=== PATIENT | female | born 1995 | race Two or more races ===

== ENCOUNTER 2025-01-20 03:19 | Emergency (ER) | payer SELFPAY ==
[2025-01-20 03:19] VITALS: BMI 40.6
[2025-01-20 03:27] VITALS: BP 129/90; PULSE 128; RESP 19; TEMP 37.1; O2SAT 96
--- NOTE | 2025-01-20 03:28 | PD.EDABDPN ---
ED Abdominal Pain RME/HPI General Chief Complaint: Abdominal Pain Stated complaint: ABD PAIN X5DAYS Time seen by provider: 01/20/25 03:32 Arrival date/time: 01/20/25 03:19 RME / HPI RME / HPI narrative: See MDM for Dr. Hernández's HPI documentation. Related Data Previous Rx's ?Medication ?Instructions ?Recorded hydrocodone 5 mg-acetaminophen 325 1 tab PO TID #10 tabs /30/22 mg tablet Allergies Allergy/AdvReac Type Severity Reaction Status Date / Time diphenhydramine Allergy Unknown Verified 01/20/25 03:46 Review of Systems Review of Systems Systems Reviewed: All systems reviewed, normal except as documented Past Medical History Social History SMOKING STATUS: Never smoker ED Exam Narrative Physical exam: See MDM for Dr. Hernández's physical exam documentation. Course Course Course Narrative: 0422: Sepsis alert initiated. Orders made at this time are congruent with ED Adult Sepsis Order List. Re-evaluation is to be completed. NS IVF was started at 0403. Quality Measures none Orders Category Date Time Status CT Screening NOW Care 01/20/25 03:34 Active Saline [Insert IV] NOW Care 01/20/25 03:[address] abdomen pelvis w con Stat Exams 01/20/25 03:34 Ordered US gall bladder Stat Exams 01/20/25 03:34 Taken US pelvic complete Stat Exams 01/20/25 03:34 Taken Amylase Stat Lab 01/20/25 04:00 Completed Bilirubin,Direct Stat Lab 01/20/25 04:00 Completed Blood Culture (Lab) Stat Lab 01/20/25 04:25 Received CBC Stat Lab 01/20/25 04:00 Completed CMP [Comprehensive Metabolic Panel] Stat Lab 01/20/25 04:00 Completed CRP [C-Reactive Protein] Stat Lab 01/20/25 04:21 Completed ESR [Sed Rate (ESR)] Stat Lab 01/20/25 04:21 Completed HCG,Qualitative Serum Stat Lab 01/20/25 04:00 Completed Lactate (Lactic Acid) Stat Lab 01/20/25 04:21 Completed Lipase Stat Lab 01/20/25 04:00 Completed Magnesium Stat Lab 01/20/25 04:00 Completed Procalcitonin Stat Lab 01/20/25 04:21 Completed UA, C/S IF [Urinalysis, C/S if Indicated] Stat Lab 01/20/25 03:35 Ordered Famotidine Inj [Pepcid Inj] Med 01/20/25 03:34 Discontinued 20 mg IVP X1 ONE Ketorolac Inj [Toradol Inj] Med 01/20/25 03:33 Discontinued 30 mg IVP X1 ONE Morphine* Inj Med 01/20/25 03:33 Discontinued 4 mg IV X1 ONE Ondansetron Inj [Zofran Inj] Med 01/20/25 03:33 Discontinued 4 mg IVP X1 ONE Pantoprazole Inj [Protonix Inj] Med 01/20/25 03:34 Discontinued 40 mg IVP X1 ONE Ringers Lactated 1000 ml [Lactated Ringers] 1,000 ml Med 01/20/25 05:06 Active IV 1,000 mls/hr Sodium Chloride 0.9% 1000 ml [Ns] 1,000 ml Med 01/20/25 03:33 Discontinued IV 999 mls/hr cefTRIAXone/D5w 1gm IV premix [Rocephin/D5w 1gm IV Med 01/20/25 04:23 Discontinued premix] 1 gm in 50 ml IV X1 Vital Signs Vital signs: Vital Signs Temperature 98.8 F 01/20/25 03:27 Pulse Rate 128 H 01/20/25 03:27 Respiratory Rate 19 01/20/25 03:27 Blood Pressure 129/90 H 01/20/25 03:27 Pulse Oximetry (%) 96 01/20/25 03:27 Oxygen Delivery Method Room Air 01/20/25 03:27 Abdominal Pain MDM MDM Narrative MDM Narrative:: This section includes all my notes and documentations, including HPI, PE, and ED course. Ronaldo Hernández MD HPI: 29yo female here with abdominal pain, nausea, and vomiting for the last several days. Worsening over the last 24 hours. No fever or chills. No history of abdominal surgery. No urinary symptoms. No other complaints reported. ROS: All negative except as documented in HPI. Physical Exam: General: Alert and oriented. In severe pain. Eyes: Conjunctivae and lids clear. ENT: No nasal congestion. Neck: Supple. Heart: RRR. Lungs: No respiratory distress. Good air movement. No rhonchi, wheezing, rales. Abdomen: Soft with diffuse tenderness. Normal bowel sounds. No distension. No rebound or guarding. Back: No CVA tenderness. Skin: Warm and dry. Neuro: Alert and oriented X 3. I ordered the IV fluid, medications, and diagnostic tests. At 6 AM on 01/20/2025, the care of the patient was transferred to Dr. Ramey. Ronaldo Hernández MD Patient data External records reviewed:: [facility] previous records (Per chart review, patient has no relevant previous ED visits.) Clinical information provided by:: patient Social determinants that could affect healthcare access:: none Patient has the following chronic illnesses:: none How is presenting disease/condition affected by chronic disease/condition?: no chronic disease Evaluation data The following diagnostics were reviewed and interpreted by me:: lab results and radiology exam(s) Lab and/or radiology exams considered but not ordered:: none Interpretation Summary: Complete diagnostic tests are pending. Medications / Prescriptions Medications or Prescriptions considered but not ordered:: none Medication administrations:: Medication Administration History Lactated Ringer's (Lactated Ringers) 1,000 mls @ 1,000 mls/hr IV .Q1H ONE Stop: 01/20/25 06:05 Discontinued Medications Famotidine (Famotidine Inj 10 Mg/Ml Vial 2 Ml) 20 mg IVP X1 ONE Stop: 01/20/25 03:35 Last Admin: 01/20/25 04:04 Dose: 20 mg Documented By: BRIAN Sodium Chloride (Ns) 1,000 mls @ 999 mls/hr IV .Q1H1M ONE Stop: 01/20/25 04:33 Last Admin: 01/20/25 04:03 Dose: 999 mls/hr Documented By: BRIAN Ceftriaxone Sodium/Dextrose (Rocephin/D5w 1gm Iv Premix) 1 gm in 50 mls @ 100 mls/hr IV X1 ONE Stop: 01/20/25 04:52 Last Admin: 01/20/25 04:42 Dose: 100 mls/hr Documented By: BRIAN Ketorolac Tromethamine (Ketorolac Inj 30 Mg/Ml Vial) 30 mg IVP X1 ONE Stop: 01/20/25 03:34 Last Admin: 01/20/25 04:03 Dose: 30 mg Documented By: BRIAN Morphine Sulfate (Morphine Sulf Inj 4 Mg/Ml Vial) 4 mg IV X1 ONE Stop: 01/20/25 03:34 Last Admin: 01/20/25 04:03 Dose: 4 mg Documented By: BRIAN Ondansetron HCl (Ondansetron Inj 2 Mg/Ml Inj 2 Ml) 4 mg IVP X1 ONE; Protocol Stop: 01/20/25 03:34 Last Admin: 01/20/25 04:03 Dose: 4 mg Documented By: BRIAN Pantoprazole Sodium (Pantoprazole Inj 40 Mg Vial) 40 mg IVP X1 ONE Stop: 01/20/25 03:35 Last Admin: 01/20/25 04:04 Dose: 40 mg Documented By: [email or web address] Protonix Zofran Morphine Toradol Pepcid IV fluid Rocephin Consultations Consultation(s) initiated? (list below): No Diagnosis Differential diagnosis abdominal pain: abdominal pain, acute appendicitis, calculus of kidney, constipation, diverticulitis, endometriosis, gastroenteritis, pancreatitis, small bowel obstruction and other (Biliary colic, PUD, gastritis, GERD) Most likely diagnosis given after review of the tests above:: Complete diagnostic tests are pending. Admission Indicated Admission indicated?: not indicated Explain why admission is indicated or not indicated:: Complete diagnostic tests are pending. Admission Request Was there a request for admission?: No Disposition Plan Disposition Plan: other (specify) (Signed out to Dr. Ramey at 6 AM.) Discharge Plan Prescriptions/Referrals Prescriptions/Med Rec: No Action hydrocodone-acetaminophen 5-325 mg tablet 1 tab PO TID MDD 3 Qty: 10 0RF Referrals: Temporary Provider,ED [Physician, Emergency Medicine] - In 1 week Problem List Clinical Impression: Abdominal pain Patient/Caregiver Discharge Instructions Print Language: Kiswahili
--- NOTE | 2025-01-20 03:34 | XR_ITS ---
Examination: Pelvic ultrasound, transabdominal, complete Technique: Transabdominal ultrasound of the pelvis performed using grayscale imaging Date and time of exam: January 20, 2025, 0445 hrs. Indications: Left-sided abdominal pain pelvic pain beginning 5 days ago Findings: Uterus 7.8 cm endometrial stripe 1.0 cm No uterine mass or intrauterine gestation Right ovary 3.0 cm arterial flow. Left ovary 4.6 cm arterial flow Impression: No uterine mass or intrauterine gestation Mildly prominent left ovary, recommend 6 month follow-up pelvic sonography
--- NOTE | 2025-01-20 03:34 | XR_ITS ---
Examination: Abdomen sonogram, Limited Date and time of exam: November 20, 2024, 0439 hrs. Indications: Right upper abdominal tenderness beginning 5 days ago Technique: Real-time reyes scale transabdominal sonographic images of the upper abdomen obtained. Findings: Normal gallbladder. Normal common bile duct 0.3 cm Pancreatic head 3.2 cm Hepatomegaly 18.5 cm fatty infiltration no focal liver lesions Normal hepatopedal portal venous flow Patent IVC Impression: Normal gallbladder Moderate hepatomegaly no focal liver lesions
--- NOTE | 2025-01-20 03:34 | XR_ITS ---
Examination: CT abdomen with intravenous contrast CT pelvis with intravenous contrast 2-D coronal reconstructions 2-D sagittal reconstructions Date and time of exam:January 20 thousand 25, 0606 hrs. Indications: Abdominal pain beginning 5 days ago worse today. CTDI: vol (mGy) 15.5 DLP: (mGycm) 898 Technique: Multiple axial sections of the abdomen and pelvis have been obtained. 64 slice high-resolution scanner used. 3 mm axial sections have been obtained, post intravenous injection 60 cc [id number] 2-D sagittal, coronal reconstructions obtained. Low dose protocols were performed. One or more of the following dose reduction techniques were used; automated exposure control, adjustment of the mA and/or KV according to patient size, use of iterative reconstruction technique. Findings: No focal liver or splenic lesions No gallstones No pancreatic or adrenal mass. No renal or ureteral calculi, no hydronephrosis 6 mm fat-containing umbilical hernia No bowel obstruction Normal appendix coronal image 80 No diverticulitis Anteverted uterus, no free fluid in the pelvis Contracted urinary bladder The osseous structures are intact Impression: No renal or ureteral calculi, no hydronephrosis Tiny fat-containing umbilical hernia No CT findings of bowel obstruction appendicitis or diverticulitis No inflammatory process in the pelvis
[2025-01-20 03:47] VITALS: BP 152/103; PULSE 117; RESP 17; TEMP 36.6; O2SAT 97
[2025-01-20] MEDS: MORPHINE SULF INJ 4 MG/ML VIAL IV (04:03)
[2025-01-20] MEDS: SODIUM CHLORIDE 0.9% 1000 ML 1,000 ML 999 ML IV (04:03)
[2025-01-20] MEDS: KETOROLAC INJ 30 MG/ML VIAL IVP (04:03)
[2025-01-20] MEDS: ONDANSETRON INJ 2 MG/ML INJ 2 ML 4 MG IVP (04:03)
[2025-01-20] MEDS: FAMOTIDINE INJ 10 MG/ML VIAL 2 ML 20 MG IVP (04:04)
[2025-01-20 04:11] LABS: Basophils # (Auto) 0.1 Thou/mm3 (0.0-0.2); Basophils % (Auto) 0 % (0-2.5); Eosinophils # (Auto) 0.0 Thou/mm3 (0.0-0.5); Eosinophils % (Auto) 0 % (0-10); Hematocrit 38.0 % (36.0-46.0); Hemoglobin 12.7 g/dL (12.0-16.0); Immature Granulocytes Auto 0.10 Thou/mm3 (0.00-0.00); Lymphocytes # (Auto) 1.5 Thou/mm3 (1.0-4.8); Lymphocytes % (Auto) 7 % (10-50); Mean Corpuscular HGB Conc 33.4 g/dl (31.0-37.0); Mean Corpuscular Hemoglobin 28.0 pg (25.0-35.0); Mean Corpuscular Volume 84 fL (80-100); Monocytes # (Auto) 0.8 Thou/mm3 (0.0-0.8); Monocytes % (Auto) 4 % (0-12); Neutrophils # (Auto) 19.4 Thou/mm3 (1.8-7.7); Neutrophils % (Auto) 89 % (37-80); Nucleated Red Blood Cell # 0.00 Thou/mm3 (0.00-0.00); Nucleated Red Blood Cell % 0 /100 WBC (0); Platelet Count 420 Thou/mm3 (140-440); RDW Standard Deviation 41.7 fL (36.4-46.3); Red Blood Count 4.54 Miln/mm3 (4.00-5.20); White Blood Count 21.9 Thou/mm3 (3.6-11.0)
[2025-01-20 04:31] LABS: HCG,Qualitative Serum Negative
[2025-01-20 04:37] LABS: Alanine Aminotransferase 28 U/L (10-49); Albumin, Serum 4.5 gm/dL (3.5-5.0); Albumin/Globulin Ratio 1.7 (1.2-2.2); Alkaline Phosphatase 98 U/L (46-116); Amylase 39 U/L (30-118); Anion Gap 11 (7-16); Aspartate Amino Transferase 24 U/L (0-34); BUN/Creatinine Ratio 9 Ratio (12-20); Bilirubin,Direct 0.2 mg/dL (0.0-0.3); Bilirubin,Total 0.5 mg/dL (0.3-1.2); Blood Urea Nitrogen 6 mg/dL (9-23); Calcium 9.2 mg/dL (8.3-10.6); Calcium (Corrected) 9.2 mg/dL (8.5-10.1); Carbon Dioxide 24.5 mMol/L (20.0-31.0); Chloride 106 mMol/L (98-107); Creatinine (Component) 0.7 mg/dL (0.6-1.3); Estimated Creatinine Clearance 126.7 mL/min (>60); Globulin 2.7 gm/dL (2.3-3.5); Glucose 148 mg/dL (74-106); Lipase 24 U/L (12-53); Magnesium 1.7 mg/dL (1.6-2.6); Osmolality,Calculated 281 (275-295); Potassium 3.6 mMol/L (3.4-5.1); Sodium 141 mMol/L (136-145); Total Protein 7.2 gm/dL (5.7-8.2); eGFR > 60 See Note
[2025-01-20 04:42] LABS: Lactate (Lactic Acid) 0.9 mMol/L (0.4-2.0)
[2025-01-20] MEDS: cefTRIAXone/D5w 1gm IV premix 1 GM/50 ML BAG IV (04:42)
[2025-01-20 04:49] LABS: Sed Rate (ESR) 15 mm/hr (0-20)
[2025-01-20 05:11] LABS: C-Reactive Protein 6.0 mg/dL (0.0-0.9); Procalcitonin 0.06 ng/ml (0.0-0.49)
--- NOTE | 2025-01-20 05:59 | PRELIM_ITS ---
Gallbladder ultrasound. January 20, 2025 0439 hours Clinical history: RUQ tenderness Comparison: No prior study is available for comparison. Findings: Gallbladder wall is 2 mm thick. No gallbladder calculi or sludge. Common bile duct is 3 mm in diameter. Pancreas is unremarkable. Liver is enlarged, 18.5 cm long. No focal hepatic lesion. Main portal vein is antegrade. Inferior vena cava is patent. Impression: Normal gallbladder. Hepatomegaly. Report Electronically Signed By: Zander Melo 01/20/2025 5:59:14 AM [EST]
--- NOTE | 2025-01-20 06:02 | PRELIM_ITS ---
Pelvic ultrasound (transabdominal). January 20, 2025 0445 hours Clinical history: Left pelvic pain Technique: Real-time, grayscale, transabdominal pelvic ultrasound was performed. Comparison: No prior study is available for comparison. Findings: Uterus is 7.8 x 4.0 x 5.2 cm. Endometrium is 1 cm thick. Right ovary is 3.0 x 3.1 x 2.4 cm. Left ovary is 4.6 x 3.3 x 4.1 cm. The ovaries have normal Doppler flow bilaterally. No free fluid. Impression: Normal exam. Report Electronically Signed By: Zander Melo 01/20/2025 6:01:26 AM [EST]
[2025-01-20 06:17] LABS: Collection Type, Urine Clean Catch
[2025-01-20] MEDS: RINGERS LACTATED 1000 ML 1,000 ML IV (06:22)
[2025-01-20 07:03] LABS: Bacteria,Urine Rare; Bilirubin,Urine Negative (Negative); Blood,Urine 1+ (Negative); Color,Urine Yellow (Lt Yel-Yel); Glucose, Urine Negative (Negative); Ketones,Urine Negative (Negative); Leukocyte Esterase,Urine Positive (Negative); Nitrite,Urine Negative (Negative); PH,Urine 6.5 (5.0-7.0); Protein,Urine Trace (Neg - Trace); RBC,Urine 7 /hpf (0-3); Specific Gravity,Urine 1.019 (1.001-1.035); Squamous Epithelial Cell,Urine 7 /hpf (0-5); Urobilinogen,Urine Negative mg/dL (0.0-1.0); WBC,Urine 28 /hpf (0-5)
--- NOTE | 2025-01-20 07:22 | EDNOTE_ITS ---
Emergency Room Addendum <Sunni Ramey MD - Last Filed: 01/20/25 07:22> Addendum Narrative: Assumed care of patient at change of shift. <Carmella Lott - Last Filed: 01/20/25 13:56> Addendum Narrative: 0600: Care assumed from Dr. Hernández, the previous shift emergency physician. Past medical, surgical, social and family history reviewed. Vitals and home medications reviewed. I will assume the care of the patient at this time, pending diagnostic testing and final disposition. Please refer to the emergency department record for history and examination from initial visit.?The following addendum documentation note is intended to reflect any pending information, findings, or radiology results not included in the patient?s initial chart. Patient remains clinically stable throughout the emergency department visit. We reviewed all the results, analysis, and treatment plans. Patient is amenable to discharge. Strict return precautions were outlined. Patient was discharged in stable condition. RADIOLOGY Ordering Physician: Ronaldo Hernández MD Date of Service: 01/20/25 Procedure(s): CT abdomen pelvis w con Accession Number(s): [id number] cc: Abilio Sheridan MD; Ronaldo Heránndez MD; Alex Muse MD~ Examination: CT abdomen with intravenous contrast CT pelvis with intravenous contrast 2-D coronal reconstructions 2-D sagittal reconstructions Date and time of exam:January 20 06 hrs. Indications: Abdominal pain beginning 5 days ago worse today. CTDI: vol (mGy) 15.5 DLP: (mGycm) 898 Technique: Multiple axial sections of the abdomen and pelvis have been obtained. 64 slice high-resolution scanner used. 3 mm axial sections have been obtained, post intravenous injection 60 cc Isovue-370 2-D sagittal, coronal reconstructions obtained. Low dose protocols were performed. One or more of the following dose reduction techniques were used; automated exposure control, adjustment of the mA and/or KV according to patient size, use of iterative reconstruction technique. Findings: No focal liver or splenic lesions No gallstones No pancreatic or adrenal mass. No renal or ureteral calculi, no hydronephrosis 6 mm fat-containing umbilical hernia No bowel obstruction Normal appendix coronal image 80 No diverticulitis Anteverted uterus, no free fluid in the pelvis Contracted urinary bladder The osseous structures are intact Impression: No renal or ureteral calculi, no hydronephrosis Tiny fat-containing umbilical hernia No CT findings of bowel obstruction appendicitis or diverticulitis No inflammatory process in the pelvis Dictated By: Alex Muse MD Signed By: <Electronically signed by Alex Muse MD in [place]>01/20/25 0709 Ordering Physician: Ronaldo Hernández MD Date of Service: 01/20/25 Procedure(s): US gall bladder Accession Number(s): [id number] cc: Abilio Sheridan MD; Ronaldo Hernández MD; Alex Muse MD~ Examination: Abdomen sonogram, Limited Date and time of exam: November 20, 2024, 0439 hrs. Indications: Right upper abdominal tenderness beginning 5 days ago Technique: Real-time reyes scale transabdominal sonographic images of the upper abdomen obtained. Findings: Normal gallbladder. Normal common bile duct 0.3 cm Pancreatic head 3.2 cm Hepatomegaly 18.5 cm fatty infiltration no focal liver lesions Normal hepatopedal portal venous flow Patent IVC Impression: Normal gallbladder Moderate hepatomegaly no focal liver lesions Dictated By: Alex Muse MD Signed By: <Electronically signed by Alex Muse MD in [place]> 01/20/25 0758 Ordering Physician: Ronaldo Hernández MD Date of Service: 01/20/25 Procedure(s): US pelvic complete Accession Number(s): [id number] cc: Abilio Sheridan MD; Ronaldo Hernández MD; Alex Muse MD~ Examination: Pelvic ultrasound, transabdominal, complete Technique: Transabdominal ultrasound of the pelvis performed using grayscale imaging Date and time of exam: January 20, 2025, 0445 hrs. Indications: Left-sided abdominal pain pelvic pain beginning 5 days ago Findings: Uterus 7.8 cm endometrial stripe 1.0 cm No uterine mass or intrauterine gestation Right ovary 3.0 cm arterial flow. Left ovary 4.6 cm arterial flow Impression: No uterine mass or intrauterine gestation Mildly prominent left ovary, recommend 6 month follow-up pelvic sonography Dictated By: Alex Muse MD Signed By: <Electronically signed by Alex Muse MD in [place]>01/20/25 0758
[2025-01-20 07:34] LABS: Clarity,Urine Hazy (Clear/Hazy); Culture Indicated,Urine Yes
[2025-01-20] MEDS: DICYCLOMINE 10 MG CAPSULE PO (08:15)
[2025-01-20] MEDS: HYDROcodone/APAP 5/325 TABLET 1 TAB PO (08:15)
[2025-01-20 08:23] VITALS: BP 127/98; PULSE 74; RESP 16; TEMP 36.6; O2SAT 99
== END 2025-01-20 08:24 | disposition home or self-care (01) ==
PROVIDERS: Emergency Medicine; Emergency Provider Emergency Medicine; PCP Family Medicine
DX: K42.9 Umbilical hernia without obstruction or gangrene (principal); R16.0 Hepatomegaly, not elsewhere classified; R10.22 Pelvic and perineal pain left side
CPT/HCPCS: 36415; 74177; 76705; 76856; 80053; 81001; 82150; 82248; 83605; 83690; 83735; 84145; 84703; 85025; 85652; 86140; 87040; 87086; 96361; 96365; 96366; 96375; 99284; A4649; J0696; J1885; J2270; J2405; J2470; J3490; J7030; J7120; Q9967; A9270